=== PATIENT | female | born 2005 | race Caucasian/White ===

== ENCOUNTER 2024-01-23 14:30 | Outpatient (RCR) | payer BC, SELFPAY | END 2024-05-22 23:59 | disposition home or self-care (01) | PROVIDERS: PCP Physician Assistant Medical; Visit Provider Physician Assistant Medical | DX: M22.2X1 Patellofemoral disorders, right knee (principal); Z51.89 Encounter for other specified aftercare | CPT/HCPCS: 97110; 97112; 97140; 97161 ==